=== PATIENT | female | born 1985 | race Caucasian/White ===

== ENCOUNTER → 2022-11-25 | Outpatient (CLI) | payer BC ==
[2022-11-25 13:02] LABS: Glucose 3 Hour, Gest 116 mg/dL
== END | disposition home or self-care (01) ==
LOC: LABWHC1 08:24
PROVIDERS: ATTEND Obstetrics & Gynecology
DX: O99.810 Abnormal glucose complicating pregnancy (principal); Z3A.00 Weeks of gestation of pregnancy not specified
CPT/HCPCS: 36415; 82951; 82952

== ENCOUNTER 2022-12-12 19:34 | Outpatient (CLI) | payer BC ==
[2022-12-12 23:34] VITALS: BP 125/67; PULSE 118; RESP 18; TEMP 97.2
--- NOTE | 2022-12-13 07:33 | P.MSEPDOC ---
Presenting Problems - Arrival Data Date of Arrival on Unit: 12/12/22 Time of Arrival on Unit: 19:34 Mode of Transport: Ambulatory - Complaint OB-Reason for Admission/Chief Complaint: Vaginal Bleeding Medical History - Information : 3 Para: 2 Term: 2 : 0 Abortions: Spontaneous or Elective: 0 Number of Living Children: 2 - Gestational Age Gestational Age by ROBERTH (wks/days): 31 Weeks and 0 Days - History Comment: Advanced maternal age, marginal cord Review of Systems - Review of Systems Constitutional: No problems Breast: No problems ENT: No problems Cardiovascular: No problems Respiratory: No problems Gastrointestinal: No problems Genitourinary: No problems Musculoskeletal: No problems Neurological: No problems Skin: No problems Vital Signs - Temperature Temperature: 97.2 F Temperature Source: Temporal Artery Scan - Pulse Pulse Oximetery Pulse Rate: 118 Pulse Assessment Method: Pulse Oximetry - Respirations Respiratory Rate: 18 Oxygen Delivery Method: Room Air O2 Sat by Pulse Oximetry: 96 - Blood Pressure Right Arm Blood Pressure: 125/67 Blood Pressure Mean: 86 Blood Pressure Source: Automatic Cuff Medical Screen Scoring - Cervical Exam Dilation (cm): 0 Effacement (%): 0 - Assessment - Baby A Baseline FHR: 140 Heart Rate - NICHD Category: Category I (Normal) NST: Reactive Physician Notification - Physician Notified Physician Notified Date: 12/12/22 Physician Notified Time: 20:31 Physician: Gerardo Mcbride Order Received: No Maternal Triage Index - Non-Urgent/Priority 4 Non-Urgent Priority 4: Yes Criteria Met for Priority 4: Pt c/o small amount of vaginal bleeding Disposition - Disposition OB Disposition: Discharge to home Discharge Date: 12/12/22 Discharge Time: 20:48 I agree with the RN Medical Screening Exam: Yes Case reviewed; plan agreed upon as documented in EMR&OBIX.: Yes Diagnosis: RELATED CONDITIONS, UNSPECIFIED, THIRD TRIMESTER (Patient presented to labor and delivery with complaints of episode of spotting earlier today. heart tones are category 1. Patient's having no bleeding on examination does not show any blood. Cervix is closed. This point there is no evidence of maternal or compromise. Plan is to discharge home. Patient to return if any increased symptomatology or other concerns.)
== END 2022-12-12 20:48 | disposition home or self-care (01) ==
LOC: FBPOP 19:34
PROVIDERS: ATTEND Obstetrics & Gynecology
DX: O26.893 Other specified pregnancy related conditions, third trimester (principal); Z3A.31 31 weeks gestation of pregnancy; Z87.891 Personal history of nicotine dependence
CPT/HCPCS: 59025; 99213

== ENCOUNTER 2022-12-15 18:40 | Outpatient (CLI) | payer BC ==
[2022-12-15 20:06] VITALS: BP 128/72; PULSE 92; RESP 18; TEMP 97
--- NOTE | 2022-12-16 02:09 | P.MSEPDOC ---
Presenting Problems - Arrival Data Date of Arrival on Unit: 12/15/22 Time of Arrival on Unit: 18:40 Mode of Transport: Ambulatory - Complaint OB-Reason for Admission/Chief Complaint: Other Comment: spotting (over the weekend), DOSS (earlier) Medical History - Information : 3 Para: 2 Term: 2 : 0 Abortions: Spontaneous or Elective: 0 Number of Living Children: 2 - Gestational Age Gestational Age by ROBERTH (wks/days): 31 Weeks and 3 Days Review of Systems - Review of Systems Constitutional: No problems Breast: No problems ENT: No problems Cardiovascular: No problems Respiratory: No problems Gastrointestinal: No problems Genitourinary: No problems Musculoskeletal: No problems Neurological: No problems Skin: No problems Vital Signs - Temperature Temperature: 97.0 F Temperature Source: Temporal Artery Scan - Pulse Apical Pulse Rate: 92 Pulse Assessment Method: Pulse Oximetry - Respirations Respiratory Rate: 18 Oxygen Delivery Method: Room Air O2 Sat by Pulse Oximetry: 98 - Blood Pressure Right Arm Blood Pressure: 128/72 Blood Pressure Mean: 90 Blood Pressure Source: Automatic Cuff Medical Screen Scoring - Assessment - Baby A Baseline FHR: 145 Heart Rate - NICHD Category: Category I (Normal) NST: Reactive Physician Notification - Physician Notified Physician Notified Date: 12/15/22 Physician Notified Time: 19:00 Physician: Joelle Keenan New Order Received: Yes - Notification Comment Comment: Dr. Keenan called, repot given on maternal/ status, c/o spotting over the. weekend, DOSS earlier today, and occassional SOB. Pt currently has no complaints. Vitals. are all WNL (BP 128/72), FHR is WNL. Orders to discharge pt home and follow up at next. schedule appointment. Maternal Triage Index - Maternal Triage Index Presenting for scheduled procedure w/no complaint: No - Stat/Priority 1 Stat Priority 1: No - Urgent/Priority 2 Urgent Priority 2: Yes Provider Notified: Joelle Keenan Provider Notified Time: 19:00 Criteria Met for Priority 2: 31 3/7wks, spotting (over the weekend), DOSS (earlier today), occassionally SOB Disposition - Disposition OB Disposition: Discharge to home Discharge Date: 12/15/22 Discharge Time: 19:11 I agree with the RN Medical Screening Exam: Yes Case reviewed; plan agreed upon as documented in EMR&OBIX.: Yes Diagnosis: SPOTTING COMPLICATING , THIRD TRIMESTER
== END 2022-12-15 19:11 | disposition home or self-care (01) ==
LOC: FBPOP 18:40
PROVIDERS: ATTEND Obstetrics & Gynecology
DX: O26.853 Spotting complicating pregnancy, third trimester (principal); Z3A.31 31 weeks gestation of pregnancy; Z87.891 Personal history of nicotine dependence
CPT/HCPCS: 59025; 99213

== ENCOUNTER 2022-12-16 12:35 | Outpatient (CLI) | payer BC ==
[2022-12-16 13:04] VITALS: RESP 16
[2022-12-16 13:18] LABS: Basophils # (A) 0.1 k/uL (0-0.2); Basophils % (A) 1 %; Eosinophils # (A) 0.1 k/uL (0-0.7); Eosinophils % (A) 1 %; HCT 30.1 % (34.0-46.0); HGB 10.4 gm/dL (11.4-16.0); Lymphocytes # (A) 1.3 k/uL (1.0-4.8); Lymphocytes % (A) 10 %; MCHC 34.6 g/dL (31.0-37.0); Mean Platelet Volume 8.4; Monocytes # (A) 0.5 k/uL (0-1.0); Monocytes % (A) 4 %; Neutrophils # (A) 10.5 k/uL (1.3-7.7); Neutrophils % (A) 83 %; Platelet Count 233 k/uL (150-450); RBC 3.58 m/uL (3.80-5.40); RDW 13.3 % (11.5-15.5); WBC 12.8 k/uL (3.8-10.6)
[2022-12-16 13:33] LABS: ALT 15 U/L (4-34); AST 15 U/L (14-36); African American GFR (CKD) >90 (>60 ml/min/1.73 sqM); Blood Urea Nitrogen 8 mg/dL (7-17); LDH 337 U/L (313-618); Non-African American GFR(CKD) >90 (>60 ml/min/1.73 sqM); Uric Acid 5.3 mg/dL (3.7-7.4)
[2022-12-16 14:04] LABS: Appearance,Urine Cloudy (Clear); Bacteria,Urine Rare /hpf; Bilirubin,Urine Negative (Negative); Blood,Urine Trace (Negative); Color,Urine Yellow; Glucose,Urine (UA) Negative (Negative); Ketones,Urine Negative (Negative); Leukocyte Esterase,Urine Small (Negative); Mucus,Urine Rare /hpf; Nitrite,Urine Negative (Negative); Protein,Urine Trace (Negative); RBC,Urine 2 /hpf (0-5); Specific Gravity,Urine 1.015 (1.001-1.035); Squamous Epithelial Cell,Urine 2 /hpf (0-4); Urobilinogen,Urine <2.0 mg/dL (<2.0); WBC,Urine 4 /hpf (0-5)
[2022-12-16 14:10] LABS: Creatinine,Urine Random 94.7 mg/dL; Protein/Creatinine Ratio,Urine 0.18
--- NOTE | 2022-12-16 14:27 | US ---
EXAMINATION TYPE: US OB >= 14 wk fetus DATE OF EXAM: 12/16/2022 COMPARISON: None CLINICAL HISTORY: Vaginal bleedingspotting TECHNIQUE: Transabdominal (TA) GESTATIONAL AGE / DATING Physician Established: (31 weeks/4 days) EDC: 02/13/2023 Dates by LMP: (31 weeks/4 days) EDC: 02/13/2023 Dates by First Scan: No previous this is first Dates by Current Scan: (34 weeks/1 days) EDC: 01/26/2023 SURVEY IUP: Single PLACENTA: Posterior PREVIA: No Previa JOSS: 14 cm Normal CERVICAL LENGTH (transabdominal: norm > 3.0cm): 3.7 cm BIOMETRY PRESENTATION: Vertex LIE: Longitudinal BPD: 8.39 cm 33 weeks / 6 days HC: 20.95 cm 34 weeks / 3 days AC: 29.80 cm 33 weeks / 6 days FL: 6.64 cm 33 weeks / 6 days ESTIMATED WEIGHT IN GRAMS: 2319 grams ESTIMATED WEIGHT IN LBS/OZ: 5 lbs. 2 oz. WEIGHT PERCENTAGE BASED ON ESTABLISHED DATES: 97% HC/AC: 1.04 Normal FL/AC: 22% Normal HEART RATE: 143 bpm RHYTHM: Normal Single live intrauterine gestation. IMPRESSION: Single live intrauterine gestation with ultrasound estimated gestational age of 34 weeks 1 day which is incongruent with estimated gestational age from LMP of 31 weeks 4 days.
[2022-12-16 17:44] VITALS: BP 155/68; PULSE 133; TEMP 98.1
--- NOTE | 2022-12-17 06:49 | P.MSEPDOC ---
Presenting Problems - Arrival Data Date of Arrival on Unit: 12/16/22 Time of Arrival on Unit: 12:35 Mode of Transport: Ambulatory - Complaint OB-Reason for Admission/Chief Complaint: Dioni Bleeding Comment: Patient presents to triage with intermittent bleeding since thursday. No cramping at this time. Patient denies intercourse in the last 24 hours, states she feels baby moving. Medical History - Information : 3 Para: 2 Term: 2 : 0 Abortions: Spontaneous or Elective: 0 Number of Living Children: 2 - Gestational Age Gestational Age by ROBERTH (wks/days): 31 Weeks and 4 Days - History Comment: Patient states she sees M for marginal cord insertion Review of Systems - Review of Systems Constitutional: No problems Breast: No problems ENT: No problems Cardiovascular: No problems Respiratory: No problems Gastrointestinal: No problems Genitourinary: No problems Musculoskeletal: No problems Neurological: No problems Skin: No problems Vital Signs - Temperature Temperature: 98.1 F Temperature Source: Temporal Artery Scan - Pulse Pulse Oximetery Pulse Rate: 133 Pulse Assessment Method: Automatic Cuff - Respirations Respiratory Rate: 16 Oxygen Delivery Method: Room Air - Blood Pressure Sitting Blood Pressure: 155/68 Blood Pressure Mean: 97 Blood Pressure Source: Automatic Cuff Medical Screen Scoring - Cervical Exam Dilation (cm): 0 - Assessment - Baby A Baseline FHR: 135 Heart Rate - NICHD Category: Category I (Normal) NST: Reactive Physician Notification - Physician Notified Physician Notified Date: 12/16/22 Physician Notified Time: 12:46 Physician: Gerardo Mcbride New Order Received: Yes - Notification Comment Comment: Dr. Mcbride at bedside, performs sterile spec and vaginal examination orders bedside ultrasound and PIH labs. 1443 Dr. Mcbride given report on PIH labs and blood pressures, orders given to keep patient on continuous monitoring for a couple hours and he will present to see her after office, patient may eat. 1719 Dr. Mcbride at bedside, discharges patient home with instructions and tells patient to keep her regular appt for 12/18. Maternal Triage Index - Non-Urgent/Priority 4 Non-Urgent Priority 4: Yes Criteria Met for Priority 4: Patient presents to [facility] with bleeding since thursday, no active bleeding currently, showed RN a photo of bright red blood, only occurs when going to the bathroom. No bleeding noted on external exam. Dr. Mcbride at bedside performing evaluation Disposition - Disposition OB Disposition: Discharge to home Discharge Date: 12/16/22 Discharge Time: 17:30 I agree with the RN Medical Screening Exam: Yes Case reviewed; plan agreed upon as documented in EMR&OBIX.: Yes Diagnosis: RELATED CONDITIONS, UNSPECIFIED, THIRD TRIMESTER (This patient is a pleasant 37-year-old female who is admitted for evaluation of bleeding that she had at home and elevated blood pressures that were noted approximately last Thursday. Examination here showed no evidence of any vaginal bleeding or old blood. However the patient did have pictures on her phone bleeding that she had noted. For this reason I did get a complete obstetrical ultrasound which was normal and also prolonged monitoring which was normal. I cannot find any source of bleeding and did not see any bleeding during this admission. Patient also had preeclampsia blood work which was normal and all of her blood pressures are beautiful. At this time we have no evidence of maternal or compromise therefore discharged home follow up with me on for repeat nonstress test and office visit. Patient was given strict instructions on what to return for concerns.)
== END 2022-12-16 17:30 | disposition home or self-care (01) ==
LOC: FBPOP 12:35
PROVIDERS: ATTEND Obstetrics & Gynecology
DX: O26.893 Other specified pregnancy related conditions, third trimester (principal); Z3A.31 31 weeks gestation of pregnancy; Z87.891 Personal history of nicotine dependence
CPT/HCPCS: 59025; 76805; 81001; 82565; 82570; 83615; 84156; 84450; 84460; 84520; 84550; 85025; 99215

== ENCOUNTER 2023-01-28 06:00 | Inpatient (IN) | payer BC ==
[2023-01-28] MEDS ORDERED: OXYTOCIN 10 UNIT/ML 1 ML VIAL IM PRN (11:19)
[2023-01-28] MEDS ORDERED: TERBUTALINE 1 MG/ML VIAL SQ PRN (11:19)
[2023-01-28] MEDS ORDERED: miSOPROStoL 200 MCG TAB PO PRN (11:19)
[2023-01-28] MEDS ORDERED: LIDOCAINE 0.5% (PF) 5 MG/ML (50 ML SDV) SQ PRN (11:19)
[2023-01-28] MEDS ORDERED: TRANEXAMIC ACID IN NACL,ISO-OS 1,000 MG in EMPTY BAG 1 BAG IV PRN (11:19)
[2023-01-28] MEDS ORDERED: CARBOPROST TROMETHAMINE 250 MCG/ML 1 ML AMP IM PRN (11:19)
[2023-01-28] MEDS ORDERED: METHYLERGONOVINE 0.2 MG/ML 1 ML AMP IM PRN (11:19)
[2023-01-28] MEDS: LACTATED RINGERS 1,000 ML IV SCH ×2 (11:29→14:16)
[2023-01-28] MEDS ORDERED: OXYTOCIN 30 UNITS/500 ML NS 30 UNIT in SALINE 1 500ML.BAG IV SCH ×2 (11:30→19:00)
[2023-01-28 11:42] LABS: Basophils % (A) 0 %; Eosinophils # (A) 0.1 k/uL (0-0.7); Eosinophils % (A) 1 %; HCT 30.7 % (34.0-46.0); HGB 10.4 gm/dL (11.4-16.0); Lymphocytes # (A) 1.2 k/uL (1.0-4.8); Lymphocytes % (A) 9 %; MCH 28.3 pg (25.0-35.0); MCHC 33.9 g/dL (31.0-37.0); MCV 83.6 fL (80.0-100.0); Mean Platelet Volume 8.1; Monocytes # (A) 0.7 k/uL (0-1.0); Monocytes % (A) 5 %; Neutrophils # (A) 11.4 k/uL (1.3-7.7); Neutrophils % (A) 83 %; Platelet Count 279 k/uL (150-450); RBC 3.67 m/uL (3.80-5.40); RDW 13.9 % (11.5-15.5); WBC 13.7 k/uL (3.8-10.6)
--- NOTE | 2023-01-28 11:52 | P.HPOB ---
History of Present Illness H&P Date: 01/28/23 Chief Complaint: Possible meconium fluid, for delivery This patient is a 38-year-old 3 para 2 female estimated date of confinement 02/13/2023 estimated gestational age 37-5/7 weeks who presented to my office today for a biophysical profile and office visit. Patient's care is complicated by to intra-abdominal echogenic foci that were noted at 19 weeks. Patient was referred to maternal- medicine and they do not know the etiology of these foci but felt that they were not causing any compromise. For the most part they've not changed throughout the . Patient's also advanced for maternal age and did have genetic testing. Maternity 2020 was 46 XY. She is also had otherwise a normal level III ultrasound, other than the above named findings. [facility] recommended testing and biophysical profile today was 8 out of 8 however the astro technician felt that she had thick fluid consistent with thick meconium. Discussed this with the patient and due to this and concerns with some decreased movement earlier this week we elected proceed with delivery at this time. Most recent ultrasound per [facility] about 10 days ago showed estimated weight of 7 lbs. 6 oz. Review of Systems Genitourinary: Reports Menstruation: Reports amenorrhea Past Medical History Past Medical History: No Reported History History of Any Multi-Drug Resistant Organisms: None Reported Past Surgical History: No Surgical Hx Reported Past Psychological History: No Psychological Hx Reported Smoking Status: Never smoker Past Alcohol Use History: None Reported Past Drug Use History: None Reported Medications and Allergies Home Medications Medication Instructions Recorded Confirmed Type Vit No.124/Iron/Folic 1 each PO DAILY 02/04/15 12/16/22 History [ Vitamin Tablet] Aspirin [Adult Low Dose Aspirin EC] 81 mg PO DAILY 12/12/22 12/16/22 History Allergies Allergy/AdvReac Type Severity Reaction Status Date / Time No Known Allergies Allergy Verified 12/16/22 12:57 Exam Intake and Output 01/27/23 01/28/23 01/28/23 22:59 06:59 14:59 Other: Weight 113.398 kg - OBG Physical Exam Abdomen: bowel sounds normal, no diffuse tenderness, no bruit present, no guarding noted, no hepatomegaly, no splenomegaly, no mass Vagina: normal moisture Uterus: enlarged Results labs show she is O positive, rubella immune, RPR nonreactive, hepatitis B is nonreactive, HIV is nonreactive, Glucola was 156 with a normal three-hour gtt., B strep was negative, ultrasounds as above. Result Diagrams: 01/28/23 11:15 Abnormal Lab Results - Last 24 Hours (Table) 01/28/23 Range/Units 11:15 WBC 13.7 H (3.8-10.6) k/uL RBC 3.67 L (3.80-5.40) m/uL Hgb 10.4 L (11.4-16.0) gm/dL Hct 30.7 L (34.0-46.0) % Neutrophils # 11.4 H (1.3-7.7) k/uL Assessment and Plan Assessment: This is a pleasant 38-year-old 3 para 2 female 37-5/7 weeks' gestation who on testing has suspected thick meconium fluid. On artificial rupture membranes however the fluid is clear. Due to the decreased movement earlier this week and the above findings we've elected to proceed with delivery at this time. Plan is induction of labor and anticipate vaginal delivery. We'll also notify pediatricians of the intra-abdominal cyst. (1) 37 or more weeks gestation of Current Visit: Yes Status: Acute Code(s): IYF1289 - SNOMED Code(s): 50003145 (2) Elderly multigravida Current Visit: Yes Status: Acute Code(s): O09.529 - SUPERVISION OF ELDERLY MULTIGRAVIDA, UNSPECIFIED TRIMESTER SNOMED Code(s): 386689479 (3) Decreased movement Current Visit: Yes Status: Acute Code(s): O36.8190 - DECREASED MOVEMENTS, UNSP TRIMESTER, UNSP SNOMED Code(s): 527986387 (4) Encounter for induction of labor Current Visit: Yes Status: Acute Code(s): Z34.90 - ENCNTR FOR SUPRVSN OF NORMAL , UNSP, UNSP TRIMESTER SNOMED Code(s): 344641642
[2023-01-28] MEDS ORDERED: ROPIVACAINE 5 MG/ML 20 ML AMPULE ONE (13:52)
[2023-01-28] MEDS ORDERED: fentaNYL (PF) 50 MCG/ML 5 ML AMP ONE (13:52)
[2023-01-28] MEDS ORDERED: SODIUM CHLORIDE 0.9% 100 ML BAG ONE (13:52)
[2023-01-28] MEDS ORDERED: LANOLIN CREAM 5 GM TUBE TOPICAL PRN (18:54)
[2023-01-28] MEDS ORDERED: bisacodyL 10 MG SUPP RECTAL PRN (18:54)
[2023-01-28] MEDS ORDERED: ZOLPIDEM 5 MG TAB PO PRN (18:54)
[2023-01-28] MEDS ORDERED: diphenhydrAMINE 50 MG/ML 1 ML VIAL IVP PRN (18:54)
[2023-01-28] MEDS ORDERED: diphenhydrAMINE 25 MG CAP PO PRN (18:54)
[2023-01-28] MEDS ORDERED: HYDROCORTISONE 2.5% RECTAL CREAM 30 GM TUBE RECTAL PRN (18:54)
[2023-01-28] MEDS ORDERED: SIMETHICONE 80 MG CHEWABLE PO PRN (18:54)
[2023-01-28] MEDS ORDERED: BENZOCAINE/MENTHOL SPRAY 1 GM/SPRAY AEROSOL TOPICAL PRN (18:54)
--- NOTE | 2023-01-28 18:59 | P.PROBDLV ---
Vaginal Delivery Note - . Vaginal Delivery Note: Normal vaginal delivery viable male infant Apgars 8 and 9 delivery time is 1723 hrs. Please see dictated H&P for intimate details of this patient's admission. Brief summary is a pleasant 38-year-old 3 para 2 female 37-5/7 weeks who presented to the office today and on ultrasound findings were suggestive of thick meconium fluid. This time I counseled the patient and due to some decreased movement earlier in the week recommend she proceed with deliver y. On admission patient is 3 cm dilated has artificial rupture membranes for clear fluid. Labor is induced with Pitocin per protocol. She does progress fairly quickly and does get an epidural for pain control. Patient gets to complete pushes the head to the perineum. Posterior perineum is supported we have controlled delivery of the infant's head over the perineum. 's head is straight occiput anterior presentation. Mouth and nares are bulb suctioned. With gentle downward traction we have delivery the anterior and posterior shoulder and rest this 's body. This is a vigorous viable male infant Apgars are 8 and 9 delivery time is 1723 hrs. After delivery of the infant the umbilical cord is immediately clamped and cut due to history of jaundice with one of her children. is laid on the mother's abdomen. The placenta spontaneously delivered intact. Inspection of perineum shows a first- degree lacerations repaired with 3-0 Vicryl usual fashion. Excellent reapproximation is noted. All counts are correct 3. and mother are stable in delivery room.
[2023-01-28] MEDS: IBUPROFEN 600 MG TAB PO PRN (19:08)
[2023-01-28] MEDS: SENNOSIDES-DOCUSATE SODIUM 1 EACH TAB PO SCH (21:00)
[2023-01-29] MEDS: IBUPROFEN 600 MG TAB PO PRN ×3 (01:48→20:05)
--- NOTE | 2023-01-29 05:43 | P.PNOBGVD ---
Subjective - Subjective Patient reports: Reports appetite normal, Reports voiding normally, Reports pain well controlled, Reports ambulating normally : doing well Objective - Latest Vital Signs Latest vital signs: Vital Signs Temp Pulse Resp BP Pulse Ox 01/29/23 04:00 97.9 F 80 18 104/66 01/28/23 23:48 97.6 F 90 18 110/70 96 01/28/23 20:00 97.6 F 81 18 122/64 98 01/28/23 19:33 97.6 F 81 18 122/64 96 01/28/23 18:50 103 H 125/66 01/28/23 18:25 96.5 F L 86 18 118/67 01/28/23 18:10 96 123/60 01/28/23 17:55 97.8 F 94 18 115/76 01/28/23 17:40 97.6 F 106 H 18 125/57 01/28/23 11:19 97.0 F L 107 H 18 138/74 100 Intake and Output 01/28/23 01/28/23 01/29/23 14:59 22:59 06:59 Intake Total 195.6 Output Total 360 Balance -164.4 Intake: Intake, IV Titration 195.6 Amount Oxytocin 30 Units/500 ml 195.6 Ns 30 unit In Saline 1 500ml.bag @ Per Protocol IV .Q0M [facility] Rx#:[id number] Output: Output, Quantitative 360 Blood Loss Other: # Voids 1 2 Weight 113.398 kg - Exam Lungs: bilateral: normal Chest: Normal S1, Normal S2 Extremities: Present: normal Abdomen: Present: normal appearance, soft Uterus: Present: normal, firm - Labs Labs: Abnormal Lab Results - Last 24 Hours (Table) 01/28/23 Range/Units 11:15 WBC 13.7 H (3.8-10.6) k/uL RBC 3.67 L (3.80-5.40) m/uL Hgb 10.4 L (11.4-16.0) gm/dL Hct 30.7 L (34.0-46.0) % Neutrophils # 11.4 H (1.3-7.7) k/uL Assessment and Plan Assessment: day #1. Patient is resting without complaints wishes to go home. Vital signs are stable and she is afebrile. Uterus is firm nontender and she is having normal lochia. CBC is pending at time of this dictation. My impression this is a normal course. Plan is to check a CBC and continue routine care most likely discharge home later today. (1) 37 or more weeks gestation of Current Visit: Yes Status: Acute Code(s): PJI8328 - SNOMED Code(s): 50891143 (2) Elderly multigravida Current Visit: Yes Status: Acute Code(s): O09.529 - SUPERVISION OF ELDERLY MULTIGRAVIDA, UNSPECIFIED TRIMESTER SNOMED Code(s): 248462844 (3) Decreased movement Current Visit: Yes Status: Acute Code(s): O36.8190 - DECREASED MOVEMENTS, UNSP TRIMESTER, UNSP SNOMED Code(s): 708002571 (4) Encounter for induction of labor Current Visit: Yes Status: Acute Code(s): Z34.90 - ENCNTR FOR SUPRVSN OF NORMAL , UNSP, UNSP TRIMESTER SNOMED Code(s): 369690675
--- NOTE | 2023-01-29 05:46 | P.DS ---
Providers Date of admission: 01/28/23 10:46 Expected date of discharge: 01/29/23 Attending physician: Gerardo Mcbride Primary care physician: Stated None - Discharge Diagnosis(es) (1) 37 or more weeks gestation of Current Visit: Yes Status: Acute (2) Elderly multigravida Current Visit: Yes Status: Acute (3) Decreased movement Current Visit: Yes Status: Acute (4) Encounter for induction of labor Current Visit: Yes Status: Acute Hospital Course: Please see dictated H&P for intimate details of this patient's admission. Brief summary is a pleasant 38-year-old 3 para 2 female 37-5/7 weeks who is admitted to labor and delivery for induction of labor secondary to suspected meconium-stained fluid decreased movement. Patient undergoes uncomplicated induction of labor quickly goes on to have a vaginal delivery viable male infant. Please see dictated delivery note. day #1 patient's feeling well wishes to go home. Patient's discharge home follow up with me in 6 weeks. Procedures: Induction of labor and normal vaginal delivery Patient Condition at Discharge: Good Plan - Discharge Summary New Discharge Prescriptions: New Ibuprofen [Motrin] 600 mg PO Q6HR PRN #30 tab PRN Reason: Mild Pain (Scale 1 To 3) No Action Vit No.124/Iron/Folic [ Vitamin Tablet] 1 each PO DAILY Aspirin [Adult Low Dose Aspirin EC] 81 mg PO DAILY Discharge Medication List Vit No.124/Iron/Folic [ Vitamin Tablet] 1 each PO DAILY 02/04/15 [History] Aspirin [Adult Low Dose Aspirin EC] 81 mg PO DAILY 12/12/22 [History] Ibuprofen [Motrin] 600 mg PO Q6HR PRN #30 tab 01/29/23 [Rx] Follow up Appointment(s)/Referral(s): Gerardo Mcbride MD [STAFF PHYSICIAN] - 6 Weeks Patient Instructions/Handouts: Vaginal Delivery (DC) Activity/Diet/Wound Care/Special Instructions: No intercourse or anything per vagina for 6 weeks. Please call if any fever, chills, excessive vaginal bleeding, and/or abdominal pain. Discharge Disposition: HOME SELF-CARE
[2023-01-29 06:30] LABS: Basophils # (A) 0.1 k/uL (0-0.2); Basophils % (A) 0 %; Eosinophils # (A) 0.1 k/uL (0-0.7); Eosinophils % (A) 1 %; HCT 29.1 % (34.0-46.0); HGB 9.7 gm/dL (11.4-16.0); Lymphocytes # (A) 1.8 k/uL (1.0-4.8); Lymphocytes % (A) 10 %; MCH 28.2 pg (25.0-35.0); MCHC 33.4 g/dL (31.0-37.0); MCV 84.5 fL (80.0-100.0); Mean Platelet Volume 8.2; Monocytes # (A) 0.9 k/uL (0-1.0); Monocytes % (A) 5 %; Neutrophils # (A) 15.1 k/uL (1.3-7.7); Neutrophils % (A) 82 %; Platelet Count 236 k/uL (150-450); RBC 3.44 m/uL (3.80-5.40); RDW 13.9 % (11.5-15.5); WBC 18.4 k/uL (3.8-10.6)
[2023-01-29] MEDS: ACETAMINOPHEN TAB 325 MG TAB PO PRN ×2 (06:47→15:19)
[2023-01-29] MEDS: SENNOSIDES-DOCUSATE SODIUM 1 EACH TAB PO SCH (08:50)
[2023-01-30] MEDS: ACETAMINOPHEN TAB 325 MG TAB PO PRN ×2 (00:34→13:13)
[2023-01-30] MEDS: LACTATED RINGERS 1,000 ML IV SCH ×2 (00:39→06:52)
[2023-01-30] MEDS: SENNOSIDES-DOCUSATE SODIUM 1 EACH TAB PO SCH ×2 (00:39→08:10)
[2023-01-30 00:43] VITALS: PULSE 81
[2023-01-30 06:01] VITALS: RESP 16
--- NOTE | 2023-01-30 06:43 | P.PNOBGVD ---
Subjective - Subjective Patient reports: Reports appetite normal, Reports voiding normally, Reports pain well controlled, Reports ambulating normally : doing well Objective - Latest Vital Signs Latest vital signs: Vital Signs Temp Pulse Resp BP Pulse Ox 01/30/23 04:00 98 F 81 16 116/75 98 01/30/23 00:00 97.8 F 81 18 111/75 96 01/29/23 20:00 98.2 F 90 18 115/77 96 01/29/23 16:00 98.3 F 100 16 120/84 01/29/23 12:00 97.8 F 98 16 132/75 01/29/23 08:00 97.9 F 90 16 131/79 Intake and Output 01/29/23 01/29/23 01/30/23 14:59 22:59 06:59 Other: Voiding Method Toilet # Voids 1 - Exam Lungs: bilateral: normal Chest: Normal S1, Normal S2 Extremities: Present: normal Abdomen: Present: normal appearance, soft Uterus: Present: normal, firm Assessment and Plan Assessment: day #2. Patient wanted to go home yesterday however her baby's bilirubin level was elevated therefore is receiving some phototherapy. Patient's vital signs are stable she is afebrile. Uterus is firm nontender she's having normal lochia. My impression this is a normal course. Patient will go home later today. (1) 37 or more weeks gestation of Current Visit: Yes Status: Acute Code(s): DZE1533 - SNOMED Code(s): 71431079 (2) Elderly multigravida Current Visit: Yes Status: Acute Code(s): O09.529 - SUPERVISION OF ELDERLY MULTIGRAVIDA, UNSPECIFIED TRIMESTER SNOMED Code(s): 857402649 (3) Decreased movement Current Visit: Yes Status: Acute Code(s): O36.8190 - DECREASED MOVEMENTS, UNSP TRIMESTER, UNSP SNOMED Code(s): 449671574 (4) Encounter for induction of labor Current Visit: Yes Status: Acute Code(s): Z34.90 - ENCNTR FOR SUPRVSN OF NORMAL , UNSP, UNSP TRIMESTER SNOMED Code(s): 849141271
[2023-01-30] MEDS: IBUPROFEN 600 MG TAB PO PRN (08:10)
[2023-01-30 08:44] VITALS: BP 122/78; TEMP 97.8
== END 2023-01-30 13:54 | disposition home or self-care (01) | DRG 807 ==
LOC: 4FBP 10:46
PROVIDERS: ADMIT Obstetrics & Gynecology; ATTEND Obstetrics & Gynecology
PROC: 10E0XZZ Delivery of Products of Conception, External Approach (ICD-10-PCS; principal; 2023-01-28)
PROC: 4A0HXCZ Measurement of Products of Conception, Cardiac Rate, External Approach (ICD-10-PCS; 2023-01-28)
PROC: 0HQ9XZZ Repair Perineum Skin, External Approach (ICD-10-PCS; 2023-01-28)
PROC: 3E033VJ Introduction of Other Hormone into Peripheral Vein, Percutaneous Approach (ICD-10-PCS; 2023-01-28)
PROC: 10907ZC Drainage of Amniotic Fluid, Therapeutic from Products of Conception, Via Natural or Artificial Opening (ICD-10-PCS; 2023-01-28)
DX: O36.8130 Decreased fetal movements, third trimester, not applicable or unspecified (principal); Z37.0 Single live birth; O77.0 Labor and delivery complicated by meconium in amniotic fluid; O70.0 First degree perineal laceration during delivery; Z3A.37 37 weeks gestation of pregnancy; Z79.82 Long term (current) use of aspirin
CPT/HCPCS: 85025; 86850; 86900; 86901; 88307

== ENCOUNTER 2024-12-22 11:46 | Outpatient (CLI) | payer BC ==
[2024-12-22 12:35] VITALS: BP 123/58; PULSE 106; RESP 16; TEMP 97.3
--- NOTE | 2025-01-13 23:56 | P.MSEPDOC ---
Presenting Problems - Arrival Data Date of Arrival on Unit: 12/22/24 Time of Arrival on Unit: 11:46 Mode of Transport: Ambulatory - Complaint OB-Reason for Admission/Chief Complaint: Other Comment: pelvic pressure, BV Medical History - Information : 4 Para: 3 Term: 3 : 0 Abortions: Spontaneous or Elective: 0 Number of Living Children: 3 - Gestational Age Gestational Age by ROBERTH (wks/days): 27 Weeks and 0 Days Review of Systems - Review of Systems Constitutional: No problems Breast: No problems ENT: No problems Cardiovascular: No problems Respiratory: No problems Gastrointestinal: No problems Genitourinary: No problems Musculoskeletal: No problems Neurological: No problems Skin: No problems Vital Signs - Temperature Temperature: 97.3 F Temperature Source: Temporal Artery Scan - Pulse Right Brachial Pulse Rate: 106 Pulse Assessment Method: Automatic Cuff - Respirations Respiratory Rate: 16 Oxygen Delivery Method: Room Air O2 Sat by Pulse Oximetry: 97 - Blood Pressure Right Arm Blood Pressure: 123/58 Blood Pressure Mean: 79 Blood Pressure Source: Automatic Cuff Medical Screen Scoring - Uterine Contractions Frequency From (mins): 0 Frequency To (mins): 0 - Assessment - Baby A Baseline FHR: 135 Heart Rate - NICHD Category: Category I (Normal) Physician Notification - Physician Notified Physician Notified Date: 12/22/24 Physician Notified Time: 12:20 Physician: Ralph Guardado New Order Received: Yes (dc) - Notification Comment Comment: call her OB for metrogel Maternal Triage Index - Maternal Triage Index Presenting for scheduled procedure w/no complaint: No - Stat/Priority 1 Stat Priority 1: No - Urgent/Priority 2 Urgent Priority 2: Yes Provider Notified: Ralph Guardado Provider Notified Time: 12:20 Criteria Met for Priority 2: 27.0 pelvic pressure Disposition - Disposition OB Disposition: Triage, Discharge to home Discharge Date: 12/22/24 Discharge Time: 12:25 I agree with the RN Medical Screening Exam: Yes Physician's MSE Comment: I have neither seen nor examined the patient. Case reviewed; plan agreed upon as documented in EMR&OBIX.: Yes Diagnosis: RELATED CONDITIONS, UNSPECIFIED, SECOND TRIMESTER
== END 2024-12-22 12:25 | disposition home or self-care (01) ==
LOC: FBPOP 11:46
PROVIDERS: ATTEND Obstetrics & Gynecology
DX: O26.92 Pregnancy related conditions, unspecified, second trimester (principal); Z3A.27 27 weeks gestation of pregnancy; Z87.891 Personal history of nicotine dependence
CPT/HCPCS: 99213